=== PATIENT | female | born 1940 | race Caucasian/White ===

== ENCOUNTER 2018-07-15 06:51 | Day surgery (SDC) | payer MEDICARE, BC ==
[2018-07-15] MEDS ORDERED: Midazolam 1 MG/ML 2 ML SDV ONE (07:17)
[2018-07-15] MEDS ORDERED: fentaNYL 100 MCG/2 ML SDV ONE (07:17)
[2018-07-15] MEDS ORDERED: Lidocaine 0.5% 50 ML SDV ONE (07:17)
[2018-07-15] MEDS ORDERED: Propofol 200 MG/20 ML SDV ONE (07:17)
[2018-07-15] MEDS ORDERED: Lactated Ringers 1,000 ML IV SCH (07:30)
[2018-07-15] MEDS ORDERED: Nozin Nasal Sanitizer NASBOTH ONE (07:30)
[2018-07-15] MEDS ORDERED: Bupivacaine 0.5% 30 ML SDV ONE (07:43)
[2018-07-15] MEDS ORDERED: Clindamycin Phosphate 900 MG in Sodium Chloride 0.9% 100 ML IV ONE (08:30)
[2018-07-15] MEDS ORDERED: Acetaminophen/HYDROcodone 325-5 MG Tab PO ONE (10:40)
--- NOTE | 2018-07-15 13:36 | PCM.OPNOTE ---
- General Post-Op/Procedure Note Date of Surgery/Procedure: 07/15/18 Operative Procedure(s): Right carpal tunnel release and left carpal tunnel injection Findings: right median nerve with significant compression Pre Op Diagnosis: bilateral carpal tunnel syndrome Post-Op Diagnosis: Same Anesthesia Technique: Moderate Sedation, Regional Block Primary Surgeon: Bony GU in mLs: 0 Complications: None Condition: Good Free Text/Narrative:: Intake & Output 07/14/18 07/15/18 07/15/18 22:59 06:59 14:59 Intake Total 575 Balance 575 78 year old female with history of rapidly progressive numbness and weakness of both hands over the past few weeks. EMG and exam consistent with severe carpal tunnel syndrome bilaterally. She is right hand dominant. Plan right CTR today and injection of left carpal tunnel. Left CTR when right is healed sufficiently. Procedure: After adequate regional anesthesia was obtained with a [place] block on the right side right hand and wrist were prepped and draped in a sterile fashion. Longitudinal incision was made in line with the fourth finger distal to the wrist crease. This was taken down through the palmar fasciato the transverse carpal ligament.Ligament was divided under direct visualization. Release was completed proximally and distally contents of the carpal tunnel were inspected.No significant abnormties or space occupying lesions were noted The median nerve showed significant compression with hourglass deformity beneath the ligament. Wound was irrigated.Skin was then closed with 3-0 nylon in interrupted mattress fashion. Sterile dressing was applied.Patient tolerated the procedure very well. Left wrist was prepped with alcohol.Carpal tunnel was then injected with 1 mL each of 0.5% Marcaine and Celestone.She was taken from the operating room in a stable condition
== END 2018-07-15 11:35 | disposition home or self-care (01) ==
LOC: JP.SDS 06:51
PROVIDERS: ATTEND Specialist
DX: G56.03 Carpal tunnel syndrome, bilateral upper limbs (principal); I10 Essential (primary) hypertension; E11.9 Type 2 diabetes mellitus without complications; Z88.1 Allergy status to other antibiotic agents; Z88.8 Allergy status to other drugs, medicaments and biological substances
CPT/HCPCS: 20526; 64721; A9270; J2250; J2704; J3010; J3490; J7030; J7120

== ENCOUNTER 2023-08-27 11:15 | Emergency (ER) | payer MEDICARE, BC ==
[2023-08-27 12:32] LABS: BASOPHILS ABSOLUTE AUTO 0.03 K/uL (0.00-0.10); BASOPHILS PERCENT AUTO 0.5 % (0.1-1.3); EOSINOPHILS ABSOLUTE AUTO 0.05 K/uL (0.00-0.40); EOSINOPHILS PERCENT AUTO 0.9 % (0.0-5.4); HEMATOCRIT 34.8 % (34.3-46.0); HEMOGLOBIN 12.7 g/dL (11.2-15.5); IMMATURE GRAN PERCENT AUTO 0.4 % (0.0-0.7); LYMPHOCYTES ABSOLUTE AUTO 1.05 K/uL (0.8-3.3); MEAN CORPUSCULAR HEMOGLOBIN 30.4 pg (31.6-35.5); MEAN CORPUSCULAR HGB CONC 36.5 g/dL (31.6-35.5); MEAN CORPUSCULAR VOLUME 83.3 fL (81.4-99.0); MONOCYTES PERCENT AUTO 7.2 % (3.3-12.6); NEUTROPHILS ABSOLUTE AUTO 3.98 K/uL (1.0-7.6); PLATELET COUNT,PLT 237 K/uL (130-375); RED BLOOD CELL COUNT 4.18 M/uL (3.77-5.24); WHITE BLOOD CELL COUNT,WBC 5.5 K/uL (3.2-11.0)
[2023-08-27 12:34] LABS: BICARBONATE,VENOUS 20.3 mmol/L; CARBOXYHEMOGLOBIN 3.4 % (0.0-1.6); METHEMOGLOBIN 0.5 %; O2 SATURATION VENOUS 91.8; OXYHEMOGLOBIN 88.2 %; PCO2 VENOUS 28.6 mm/Hg; PH,VENOUS 7.464 (7.350-7.450); PO2 VENOUS 59.1 mm/Hg
[2023-08-27 12:40] LABS: IMMATURE GRAN ABSOLUTE AUTO 0.02 K/uL (0.00-0.23)
[2023-08-27 12:42] LABS: TOTAL HEMOGLOBIN 13.1 g/dL (12.0-16.0)
[2023-08-27 12:43] LABS: INR 1.2; PROTHROMBIN TIME 11.6 sec (9.2-10.6)
[2023-08-27 12:58] LABS: ALANINE AMINOTRANSFERASE,ALT 29 U/L (12-78); ALBUMIN 3.6 g/dL (3.4-5.0); ALKALINE PHOSPHATASE 72 U/L (46-116); ASPARTATE AMNIOTRANSFERASE,AST 21 U/L (15-37); BILIRUBIN TOTAL 1.1 mg/dL (0.2-1.0); BLOOD UREA NITROGEN,BUN 17 mg/dL (7-18); CARBON DIOXIDE,CO2 22 mmol/L (21-32); CHLORIDE,CL 97 mmol/L (100-108); CREATININE 1.3 mg/dL (0.6-1.0); EST CRCL DRUG DOSING (CG) 24.74 mL/min; ESTIMATED GFR 41 mL/min (>60); GLUCOSE RANDOM 177 mg/dL (74-106); POTASSIUM,K 3.4 mmol/L (3.6-5.2); PRO B-TYPE NATRIUR PEPT,BNPPRO 2379 pg/mL (5-450); PROTEIN TOTAL,TP 7.2 g/dL (6.4-8.2); SODIUM,NA 131 mmol/L (140-148); TROPONIN I HIGH SENSITIVITY 27.5 pg/mL (<=60.3); TSH ULTRASENSITIVE 4.695 uIU/mL (0.358-3.740)
[2023-08-27 13:02] LABS: ANION GAP 15.4 mmol/L (5.0-14.0)
[2023-08-27 13:41] LABS: CORONAVIRUS COVID-19 NAA NEGATIVE (NEGATIVE); INFLUENZA A NAA NEGATIVE (NEGATIVE); INFLUENZA B NAA NEGATIVE (NEGATIVE); RESPIRATORY SYNCYTIAL VIR NAA NEGATIVE (NEGATIVE)
[2023-08-27] MEDS: Metoprolol Tartrate 5 MG in Sodium Chloride 0.9% 50 ML IV ONE (13:43)
[2023-08-27] MEDS: Metoprolol Tartrate 5 MG/5 ML SDV IVPUSH ONE (13:51)
[2023-08-27] MEDS ORDERED: Sodium Chloride 0.9% 10 ML Syringe FLUSH ONE (13:53)
[2023-08-27] MEDS: Iopamidol 755 Mg/ML 100 ML Bottle IV ONE (14:12)
[2023-08-27] MEDS: Sodium Chloride 0.9% 100 ML IV ONE (14:12)
[2023-08-27 14:45] LABS: APPEARANCE,URINE CLEAR (CLEAR); BILIRUBIN,URINE NEGATIVE (NEGATIVE); COLOR,URINE YELLOW (YELLOW); GLUCOSE,URINE NEGATIVE (NEGATIVE); KETONES,URINE 40 mg/dL (NEGATIVE); LEUKOCYTE ESTERASE,URINE NEGATIVE (NEGATIVE); NITRITE,URINE NEGATIVE (NEGATIVE); OCCULT BLOOD,URINE SMALL (NEGATIVE); PROTEIN,URINE >=300 mg/dL (NEGATIVE); UROBILINOGEN,URINE 0.2 EU/dL (0.2-1.0)
[2023-08-27 14:53] LABS: AMORPHOUS SEDIMENT,URINE NOT SEEN; BACTERIA,URINE FEW; EPITHELIAL CELLS,URINE RARE; MUCUS,URINE NOT SEEN; WBC,URINE 0-5 (0-5)
[2023-08-27] MEDS: Metoprolol Succinate 25 MG Tab.ER PO ONE (16:29)
== END 2023-08-27 16:32 | disposition home or self-care (01) ==
LOC: JP.ED 11:15
DX: I48.91 Unspecified atrial fibrillation (principal); K80.20 Calculus of gallbladder without cholecystitis without obstruction; I11.0 Hypertensive heart disease with heart failure; I50.41 Acute combined systolic (congestive) and diastolic (congestive) heart failure; E11.9 Type 2 diabetes mellitus without complications; Z88.0 Allergy status to penicillin; Z88.8 Allergy status to other drugs, medicaments and biological substances; Z79.82 Long term (current) use of aspirin; Z79.84 Long term (current) use of oral hypoglycemic drugs; Z79.4 Long term (current) use of insulin; Z79.899 Other long term (current) drug therapy; Z90.49 Acquired absence of other specified parts of digestive tract
CPT/HCPCS: 0241U; 36415; 71045; 71275; 74177; 80053; 81001; 82803; 83605; 83880; 84145; 84443; 84484; 85025; 85379; 85610; 93005; 93010; 96374; 99285; A9270; J3490; Q9967

== ENCOUNTER 2023-09-01 11:40 | Emergency (ER) | payer MEDICARE, BC | END 2023-09-01 14:44 | disposition home or self-care (01) | LOC: JP.ED 11:40 | DX: R60.0 Localized edema (principal); I10 Essential (primary) hypertension; I48.91 Unspecified atrial fibrillation; E11.9 Type 2 diabetes mellitus without complications; Z88.0 Allergy status to penicillin; Z88.8 Allergy status to other drugs, medicaments and biological substances; Z79.82 Long term (current) use of aspirin; Z79.899 Other long term (current) drug therapy; Z79.84 Long term (current) use of oral hypoglycemic drugs; Z79.4 Long term (current) use of insulin; Z79.01 Long term (current) use of anticoagulants | CPT/HCPCS: 99284 ==

== ENCOUNTER 2023-09-10 13:28 | Emergency (ER) | payer MEDICARE, BC | END 2023-09-10 15:10 | disposition home or self-care (01) | LOC: JP.ED 13:28 | DX: S90.02XA Contusion of left ankle, initial encounter (principal); S80.12XA Contusion of left lower leg, initial encounter; S90.32XA Contusion of left foot, initial encounter; I10 Essential (primary) hypertension; I48.91 Unspecified atrial fibrillation; E11.9 Type 2 diabetes mellitus without complications; Z88.0 Allergy status to penicillin; Z91.048 Other nonmedicinal substance allergy status; Z88.8 Allergy status to other drugs, medicaments and biological substances; Z88.2 Allergy status to sulfonamides; Z79.82 Long term (current) use of aspirin; Z79.4 Long term (current) use of insulin; Z79.899 Other long term (current) drug therapy; Z79.84 Long term (current) use of oral hypoglycemic drugs; W26.8XXA Contact with other sharp object(s), not elsewhere classified, initial encounter | CPT/HCPCS: 99283 ==

== ENCOUNTER 2023-10-20 14:00 | Emergency (ER) | payer MEDICARE, BC ==
[2023-10-20 15:43] LABS: BASOPHILS PERCENT AUTO 0.2 % (0.1-1.3); EOSINOPHILS ABSOLUTE AUTO 0.06 K/uL (0.00-0.40); EOSINOPHILS PERCENT AUTO 1.1 % (0.0-5.4); HEMATOCRIT 29.8 % (34.3-46.0); HEMOGLOBIN 10.6 g/dL (11.2-15.5); IMMATURE GRAN PERCENT AUTO 0.4 % (0.0-0.7); LYMPHOCYTES ABSOLUTE AUTO 0.91 K/uL (0.8-3.3); LYMPHOCYTES PERCENT AUTO 16.9 % (11.4-47.7); MEAN CORPUSCULAR HEMOGLOBIN 29.8 pg (31.6-35.5); MEAN CORPUSCULAR HGB CONC 35.6 g/dL (31.6-35.5); MEAN CORPUSCULAR VOLUME 83.7 fL (81.4-99.0); MONOCYTES ABSOLUTE AUTO 0.43 K/uL (0.20-0.90); NEUTROPHILS ABSOLUTE AUTO 3.95 K/uL (1.0-7.6); NEUTROPHILS PERCENT AUTO 73.4 % (40.0-78.1); PLATELET COUNT,PLT 194 K/uL (130-375); RED BLOOD CELL COUNT 3.56 M/uL (3.77-5.24); WHITE BLOOD CELL COUNT,WBC 5.4 K/uL (3.2-11.0)
[2023-10-20 15:47] LABS: BASOPHILS ABSOLUTE AUTO 0.01 K/uL (0.00-0.10); IMMATURE GRAN ABSOLUTE AUTO 0.02 K/uL (0.00-0.23)
[2023-10-20 16:02] LABS: INR 1.5; PROTHROMBIN TIME 15.5 sec (9.2-10.6); PTT,PARTIAL THROMBOPLSTIN TIME 38.5 sec (21.8-27.3)
[2023-10-20 16:12] LABS: ALANINE AMINOTRANSFERASE,ALT 23 U/L (12-78); ALKALINE PHOSPHATASE 63 U/L (46-116); ASPARTATE AMNIOTRANSFERASE,AST 20 U/L (15-37); BILIRUBIN TOTAL 0.7 mg/dL (0.2-1.0); BLOOD UREA NITROGEN,BUN 17 mg/dL (7-18); CALCIUM 8.3 mg/dL (8.5-10.1); CARBON DIOXIDE,CO2 23 mmol/L (21-32); CHLORIDE,CL 94 mmol/L (100-108); CREATININE 1.7 mg/dL (0.6-1.0); EST CRCL DRUG DOSING (CG) 19.83 mL/min; ESTIMATED GFR 30 mL/min (>60); GLUCOSE RANDOM 103 mg/dL (74-106); PHOSPHORUS 4.1 mg/dL (2.5-4.9); POTASSIUM,K 3.5 mmol/L (3.6-5.2); PRO B-TYPE NATRIUR PEPT,BNPPRO 7972 pg/mL (5-450); PROTEIN TOTAL,TP 6.1 g/dL (6.4-8.2); SODIUM,NA 130 mmol/L (140-148); TROPONIN I HIGH SENSITIVITY 17.2 pg/mL (<=60.3)
[2023-10-20 16:13] LABS: ANION GAP 16.5 mmol/L (5.0-14.0); C-REACTIVE PROTEIN < 0.50 mg/dL (<0.50)
[2023-10-20] MEDS: Furosemide 40 MG/4 ML VIAL IVPUSH ONE (17:10)
[2023-10-20 17:13] LABS: APPEARANCE,URINE CLEAR (CLEAR); BILIRUBIN,URINE NEGATIVE (NEGATIVE); COLOR,URINE YELLOW (YELLOW); GLUCOSE,URINE NEGATIVE (NEGATIVE); KETONES,URINE NEGATIVE (NEGATIVE); LEUKOCYTE ESTERASE,URINE NEGATIVE (NEGATIVE); NITRITE,URINE NEGATIVE (NEGATIVE); OCCULT BLOOD,URINE NEGATIVE (NEGATIVE); PH,URINE 5.5 (5.0-8.0); PROTEIN,URINE 100 mg/dL (NEGATIVE); UROBILINOGEN,URINE 0.2 EU/dL (0.2-1.0)
[2023-10-20] MEDS: Magnesium Sulfate/Water 2 GM in Premix Bag 1 BAG IV ONE ×2 (17:14→19:09)
[2023-10-20 17:30] LABS: AMORPHOUS SEDIMENT,URINE NOT SEEN; BACTERIA,URINE RARE; EPITHELIAL CELLS,URINE MANY; MUCUS,URINE FEW; RBC,URINE 0-5 (0-5)
== END 2023-10-20 21:47 | disposition home or self-care (01) ==
LOC: JP.ED 14:00
DX: I11.0 Hypertensive heart disease with heart failure (principal); I50.23 Acute on chronic systolic (congestive) heart failure; E83.42 Hypomagnesemia; E78.00 Pure hypercholesterolemia, unspecified; E11.9 Type 2 diabetes mellitus without complications; Z90.49 Acquired absence of other specified parts of digestive tract; Z79.84 Long term (current) use of oral hypoglycemic drugs; Z79.899 Other long term (current) drug therapy; Z79.4 Long term (current) use of insulin; Z88.8 Allergy status to other drugs, medicaments and biological substances; Z88.2 Allergy status to sulfonamides; Z88.0 Allergy status to penicillin
CPT/HCPCS: 36415; 71046; 80053; 81001; 83605; 83735; 83880; 84100; 84484; 85025; 85610; 85730; 86140; 93005; 93010; 96365; 96366; 96375; 99284; 99285; J1940; J3475

== ENCOUNTER 2023-11-10 11:53 | Inpatient (IN) | payer MEDICARE, BC ==
[2023-11-10] MEDS ORDERED: Sodium Chloride 0.9% 10 ML Syringe FLUSH PRN (14:38)
[2023-11-10 14:51] LABS: BASOPHILS ABSOLUTE AUTO 0.04 K/uL (0.00-0.10); BASOPHILS PERCENT AUTO 0.7 % (0.1-1.3); EOSINOPHILS ABSOLUTE AUTO 0.06 K/uL (0.00-0.40); EOSINOPHILS PERCENT AUTO 1.1 % (0.0-5.4); HEMATOCRIT 31.9 % (34.3-46.0); HEMOGLOBIN 10.8 g/dL (11.2-15.5); IMMATURE GRAN ABSOLUTE AUTO 0.03 K/uL (0.00-0.23); IMMATURE GRAN PERCENT AUTO 0.5 % (0.0-0.7); LYMPHOCYTES ABSOLUTE AUTO 1.13 K/uL (0.8-3.3); LYMPHOCYTES PERCENT AUTO 20.5 % (11.4-47.7); MEAN CORPUSCULAR HEMOGLOBIN 29.6 pg (31.6-35.5); MEAN CORPUSCULAR HGB CONC 33.9 g/dL (31.6-35.5); MEAN CORPUSCULAR VOLUME 87.4 fL (81.4-99.0); MONOCYTES ABSOLUTE AUTO 0.41 K/uL (0.20-0.90); MONOCYTES PERCENT AUTO 7.5 % (3.3-12.6); NEUTROPHILS ABSOLUTE AUTO 3.83 K/uL (1.0-7.6); NEUTROPHILS PERCENT AUTO 69.7 % (40.0-78.1); PLATELET COUNT,PLT 262 K/uL (130-375); RED BLOOD CELL COUNT 3.65 M/uL (3.77-5.24); WHITE BLOOD CELL COUNT,WBC 5.5 K/uL (3.2-11.0)
[2023-11-10 15:21] LABS: ALANINE AMINOTRANSFERASE,ALT 25 U/L (12-78); ALBUMIN 3.6 g/dL (3.4-5.0); ALKALINE PHOSPHATASE 76 U/L (46-116); ASPARTATE AMNIOTRANSFERASE,AST 17 U/L (15-37); BILIRUBIN TOTAL 1.1 mg/dL (0.2-1.0); BLOOD UREA NITROGEN,BUN 39 mg/dL (7-18); CALCIUM 8.8 mg/dL (8.5-10.1); CARBON DIOXIDE,CO2 28 mmol/L (21-32); CHLORIDE,CL 100 mmol/L (100-108); CREATININE 1.9 mg/dL (0.6-1.0); EST CRCL DRUG DOSING (CG) 17.74 mL/min; ESTIMATED GFR 26 mL/min (>60); GLUCOSE RANDOM 115 mg/dL (74-106); POTASSIUM,K 4.1 mmol/L (3.6-5.2); PRO B-TYPE NATRIUR PEPT,BNPPRO 9193 pg/mL (5-450); PROTEIN TOTAL,TP 7.2 g/dL (6.4-8.2); SODIUM,NA 137 mmol/L (140-148)
[2023-11-10 15:23] LABS: ANION GAP 13.1 mmol/L (5.0-14.0)
[2023-11-10] MEDS: Furosemide 40 MG/4 ML VIAL IVPUSH ONE (16:22)
[2023-11-10] MEDS ORDERED: Propofol 200 MG/20 ML SDV ONE (17:20)
[2023-11-10] MEDS: Diltiazem 25 MG/5 ML SDV IVPUSH ONE (17:27)
[2023-11-10] MEDS: LORazepam 2 MG/ML SDV IVPUSH ONE (18:05)
[2023-11-10] MEDS ORDERED: Ondansetron 4 MG Tab.DIS PO PRN (19:59)
[2023-11-10] MEDS ORDERED: Acetaminophen 325 MG Tab PO PRN (19:59)
[2023-11-10] MEDS ORDERED: Melatonin 3 MG Tab PO PRN (19:59)
[2023-11-10] MEDS ORDERED: Magnesium Hydroxide 400 MG/5 ML Susp 30 ML Cup PO PRN (19:59)
[2023-11-10] MEDS ORDERED: Sennosides/Docusate Sodium 50-8.6 MG Tab PO PRN (19:59)
[2023-11-10] MEDS ORDERED: Ondansetron 4 MG/2 ML SDV IV PRN (19:59)
[2023-11-10] MEDS ORDERED: Glucagon,Human Recombinant 1 MG Vial IM PRN (20:27)
[2023-11-10] MEDS ORDERED: 50% Dextrose in Water 50 ML Syringe IVPUSH PRN (20:27)
[2023-11-10] MEDS: Insulin Lispro 100 Unit/ML 3 ML KwikPen SUBCUT SCH (21:17)
[2023-11-10] MEDS: Metoprolol Succinate 50 MG Tab.ER PO SCH (21:21)
[2023-11-10] MEDS: Bumetanide 2.5 MG/10 ML MDV IVPUSH SCH (21:22)
[2023-11-10] MEDS: Insulin Glargine,Human Rec. Analog 100 Units/ML 3 ML Pen SUBCUT SCH (21:23)
[2023-11-10] MEDS: Magnesium Sulfate/Water 2 GM in Premix Bag 1 BAG IV ONE (22:22)
[2023-11-11 05:16] LABS: HEMATOCRIT 32.9 % (34.3-46.0); HEMOGLOBIN 11.2 g/dL (11.2-15.5); MEAN CORPUSCULAR HEMOGLOBIN 29.5 pg (31.6-35.5); MEAN CORPUSCULAR VOLUME 86.6 fL (81.4-99.0); RED BLOOD CELL COUNT 3.8 M/uL (3.77-5.24); WHITE BLOOD CELL COUNT,WBC 5.3 K/uL (3.2-11.0)
[2023-11-11 05:33] LABS: CALCIUM 8.7 mg/dL (8.5-10.1); CREATININE 1.8 mg/dL (0.6-1.0); EST CRCL DRUG DOSING (CG) 18.73 mL/min; MAGNESIUM 2.1 mg/dL (1.8-2.4); POTASSIUM,K 3.6 mmol/L (3.6-5.2)
[2023-11-11 05:54] LABS: ANION GAP 17.6 mmol/L (5.0-14.0)
[2023-11-11] MEDS: Metoprolol Tartrate 5 MG/5 ML SDV IVPUSH ONE (08:18)
[2023-11-11] MEDS: amLODIPine 5 MG Tab PO SCH (08:34)
[2023-11-11] MEDS: Bumetanide 1 MG/4 ML MDV IVPUSH SCH (08:34)
[2023-11-11] MEDS: Rosuvastatin 10 MG Tab PO SCH (08:35)
[2023-11-11] MEDS ORDERED: Bumetanide 2.5 MG/10 ML MDV IVPUSH SCH (09:00)
[2023-11-11] MEDS ORDERED: Rivaroxaban 15 MG Tab PO SCH (17:00)
== END 2023-11-11 12:53 | DRG 291 ==
LOC: JP.ED 11:53 → JP.MS 19:25
PROVIDERS: ADMIT Registered Nurse; ATTEND Hospitalist
PROC: 5A2204Z Restoration of Cardiac Rhythm, Single (ICD-10-PCS; principal; 2023-11-10)
DX: I11.0 Hypertensive heart disease with heart failure (principal); I50.33 Acute on chronic diastolic (congestive) heart failure; I48.11 Longstanding persistent atrial fibrillation; I48.92 Unspecified atrial flutter; E78.00 Pure hypercholesterolemia, unspecified; E11.9 Type 2 diabetes mellitus without complications; E83.42 Hypomagnesemia; Z79.01 Long term (current) use of anticoagulants; Z88.0 Allergy status to penicillin; Z88.2 Allergy status to sulfonamides; Z88.1 Allergy status to other antibiotic agents; Z88.8 Allergy status to other drugs, medicaments and biological substances; Z79.4 Long term (current) use of insulin; Z79.84 Long term (current) use of oral hypoglycemic drugs; Z79.899 Other long term (current) drug therapy; Z98.890 Other specified postprocedural states; Z98.49 Cataract extraction status, unspecified eye; Z90.49 Acquired absence of other specified parts of digestive tract
CPT/HCPCS: 36415; 71045 ×2; 80053; 83735; 83880; 84443; 84484; 85025; 92960; 93005; 96374; 96375; 99285; J1940; J2704; J3490; 80048; 82947; 85027; A9270-GY; J1815; J1815-GY; J3475

== ENCOUNTER 2023-12-19 11:11 | Inpatient (IN) | payer MEDICARE, BC ==
[2023-12-19] MEDS ORDERED: Polyethylene Glycol 3350 Powder 17 GM Packet PO PRN (11:57)
[2023-12-19] MEDS ORDERED: Sodium Chloride 0.9% 10 ML Syringe FLUSH PRN (11:57)
[2023-12-19] MEDS ORDERED: Ondansetron 4 MG/2 ML SDV IV PRN (11:57)
[2023-12-19] MEDS ORDERED: Acetaminophen 325 MG Tab PO PRN (11:57)
[2023-12-19] MEDS ORDERED: Glucagon,Human Recombinant 1 MG Vial IM PRN (12:02)
[2023-12-19] MEDS ORDERED: 50% Dextrose in Water 50 ML Syringe IV PRN (12:04)
[2023-12-19] MEDS ORDERED: Glucose Gel 15 GM in 37.5 GM Tube PO PRN (12:04)
[2023-12-19 12:15] LABS: BASOPHILS ABSOLUTE AUTO 0.05 K/uL (0.00-0.10); BASOPHILS PERCENT AUTO 0.8 % (0.1-1.3); EOSINOPHILS PERCENT AUTO 1.7 % (0.0-5.4); HEMATOCRIT 34.8 % (34.3-46.0); HEMOGLOBIN 11.8 g/dL (11.2-15.5); IMMATURE GRAN PERCENT AUTO 0.3 % (0.0-0.7); LYMPHOCYTES ABSOLUTE AUTO 1.51 K/uL (0.8-3.3); LYMPHOCYTES PERCENT AUTO 24.9 % (11.4-47.7); MEAN CORPUSCULAR HEMOGLOBIN 29.6 pg (31.6-35.5); MEAN CORPUSCULAR HGB CONC 33.9 g/dL (31.6-35.5); MEAN CORPUSCULAR VOLUME 87.2 fL (81.4-99.0); MONOCYTES PERCENT AUTO 8.3 % (3.3-12.6); NEUTROPHILS ABSOLUTE AUTO 3.88 K/uL (1.0-7.6); PLATELET COUNT,PLT 253 K/uL (130-375); RED BLOOD CELL COUNT 3.99 M/uL (3.77-5.24); WHITE BLOOD CELL COUNT,WBC 6.1 K/uL (3.2-11.0)
[2023-12-19 12:21] LABS: IMMATURE GRAN ABSOLUTE AUTO 0.02 K/uL (0.00-0.23)
[2023-12-19 12:56] LABS: ALANINE AMINOTRANSFERASE,ALT 23 U/L (12-78); ALBUMIN 3.7 g/dL (3.4-5.0); ALKALINE PHOSPHATASE 87 U/L (46-116); ASPARTATE AMNIOTRANSFERASE,AST 21 U/L (15-37); BILIRUBIN TOTAL 0.7 mg/dL (0.2-1.0); BLOOD UREA NITROGEN,BUN 28 mg/dL (7-18); CALCIUM 9.4 mg/dL (8.5-10.1); CARBON DIOXIDE,CO2 35 mmol/L (21-32); CHLORIDE,CL 96 mmol/L (100-108); CREATININE 2.1 mg/dL (0.6-1.0); EST CRCL DRUG DOSING (CG) 16.05 mL/min; ESTIMATED GFR 23 mL/min (>60); GLUCOSE RANDOM 140 mg/dL (74-106); MAGNESIUM 1.7 mg/dL (1.8-2.4); POTASSIUM,K 3.6 mmol/L (3.6-5.2); PROTEIN TOTAL,TP 7.3 g/dL (6.4-8.2); SODIUM,NA 136 mmol/L (140-148)
[2023-12-19 13:06] LABS: ANION GAP 8.6 mmol/L (5.0-14.0)
[2023-12-19] MEDS: Potassium Chloride 20 MEQ Tab.ER PO ONE (14:16)
[2023-12-19] MEDS: Magnesium Sulfate/Water 2 GM in Premix Bag 1 BAG IV SCH (14:17)
[2023-12-19] MEDS: Insulin Lispro 100 Unit/ML 3 ML KwikPen SUBCUT SCH (17:41)
[2023-12-19] MEDS: Bumetanide 1 MG/4 ML MDV IVPUSH ONE (19:18)
[2023-12-19] MEDS: Insulin Glargine,Human Rec. Analog 100 Units/ML 3 ML Pen SUBCUT SCH (20:51)
[2023-12-19] MEDS: Metoprolol Succinate 25 MG Tab.ER PO SCH (20:52)
[2023-12-19] MEDS: Magnesium Oxide 400 MG Tab PO SCH (20:52)
[2023-12-20 06:25] LABS: CALCIUM 9.8 mg/dL (8.5-10.1); CREATININE 1.9 mg/dL (0.6-1.0); EST CRCL DRUG DOSING (CG) 17.74 mL/min; MAGNESIUM 1.9 mg/dL (1.8-2.4); POTASSIUM,K 3.1 mmol/L (3.6-5.2)
[2023-12-20 06:30] LABS: ANION GAP 8.1 mmol/L (5.0-14.0)
[2023-12-20] MEDS: Rivaroxaban 15 MG Tab PO SCH (08:23)
[2023-12-20] MEDS: Diltiazem 120 MG Cap.CD PO SCH (08:23)
[2023-12-20] MEDS: Rosuvastatin 10 MG Tab PO SCH (08:23)
[2023-12-20] MEDS: Potassium Chloride 20 MEQ Tab.ER PO SCH (08:24)
[2023-12-20] MEDS ORDERED: Bumetanide 1 MG/4 ML MDV IVPUSH ONE (08:45)
[2023-12-20] MEDS ORDERED: Magnesium Oxide 400 MG Tab PO SCH (09:00)
[2023-12-20] MEDS: Potassium Chloride 20 MEQ Tab.ER PO ONE ×2 (09:06→12:00)
[2023-12-20] MEDS: Bumetanide 2.5 MG/10 ML MDV IVPUSH ONE (09:06)
[2023-12-20] MEDS: Bumetanide 2.5 MG/10 ML MDV IVPUSH SCH (19:42)
[2023-12-21 05:22] LABS: CALCIUM 9.9 mg/dL (8.5-10.1); EST CRCL DRUG DOSING (CG) 16.86 mL/min; MAGNESIUM 1.9 mg/dL (1.8-2.4); POTASSIUM,K 3.6 mmol/L (3.6-5.2)
[2023-12-21 05:26] LABS: ANION GAP 10.6 mmol/L (5.0-14.0)
[2023-12-21] MEDS: Potassium Chloride 20 MEQ Tab.ER PO ONE ×2 (09:06→16:53)
[2023-12-21] MEDS: Potassium Chloride 20 MEQ Tab.ER PO SCH (09:06)
[2023-12-22 06:25] LABS: CREATININE 2.2 mg/dL (0.6-1.0); EST CRCL DRUG DOSING (CG) 15.32 mL/min; POTASSIUM,K 3.5 mmol/L (3.6-5.2)
[2023-12-22 06:28] LABS: ANION GAP 7.5 mmol/L (5.0-14.0)
[2023-12-22] MEDS: Potassium Chloride 20 MEQ Tab.ER PO ONE (11:46)
[2023-12-22] MEDS: Bumetanide 1 MG/4 ML MDV IVPUSH SCH (15:18)
[2023-12-23 05:37] LABS: CALCIUM 9.7 mg/dL (8.5-10.1); CREATININE 2.1 mg/dL (0.6-1.0); EST CRCL DRUG DOSING (CG) 16.05 mL/min; POTASSIUM,K 3.5 mmol/L (3.6-5.2)
[2023-12-23 05:44] LABS: ANION GAP 6.5 mmol/L (5.0-14.0)
[2023-12-23] MEDS: Bumetanide 2.5 MG/10 ML MDV IVPUSH SCH (06:10)
[2023-12-23] MEDS: Potassium Chloride 20 MEQ Tab.ER PO ONE (08:13)
[2023-12-23] MEDS: Bumetanide 1 MG Tab PO ONE (16:34)
[2023-12-24 06:10] LABS: CALCIUM 9.8 mg/dL (8.5-10.1); EST CRCL DRUG DOSING (CG) 16.86 mL/min; POTASSIUM,K 3.6 mmol/L (3.6-5.2)
[2023-12-24 06:11] LABS: ANION GAP 7.6 mmol/L (5.0-14.0)
[2023-12-24] MEDS: Bumetanide 1 MG Tab PO SCH (08:59)
== END 2023-12-24 11:17 | disposition home or self-care (01) | DRG 291 ==
LOC: JP.MS 11:11
PROVIDERS: ADMIT Hospitalist; ATTEND Internal Medicine
DX: I13.0 Hypertensive heart and chronic kidney disease with heart failure and stage 1 through stage 4 chronic kidney disease, or unspecified chronic kidney disease (principal); I50.33 Acute on chronic diastolic (congestive) heart failure; N18.4 Chronic kidney disease, stage 4 (severe); E78.00 Pure hypercholesterolemia, unspecified; I08.1 Rheumatic disorders of both mitral and tricuspid valves; I48.0 Paroxysmal atrial fibrillation; E87.6 Hypokalemia; Z86.16 Personal history of COVID-19; Z88.0 Allergy status to penicillin; Z88.8 Allergy status to other drugs, medicaments and biological substances; Z88.1 Allergy status to other antibiotic agents; Z88.2 Allergy status to sulfonamides; Z79.4 Long term (current) use of insulin; Z79.899 Other long term (current) drug therapy; Z79.01 Long term (current) use of anticoagulants; Z98.49 Cataract extraction status, unspecified eye; Z90.49 Acquired absence of other specified parts of digestive tract; Z98.890 Other specified postprocedural states
CPT/HCPCS: 36415; 80048; 80053; 82947; 83735; 83880; 84132; 85025; 99222; 99232; 99238; A9270-GY; J1815; J1815-GY; J3475; J3490

== ENCOUNTER 2024-03-26 17:15 | Inpatient (IN) | payer MEDICARE, BC ==
[2024-03-26 19:22] LABS: BASOPHILS ABSOLUTE AUTO 0.04 K/uL (0.00-0.10); BASOPHILS PERCENT AUTO 0.6 % (0.1-1.3); EOSINOPHILS ABSOLUTE AUTO 0.04 K/uL (0.00-0.40); EOSINOPHILS PERCENT AUTO 0.6 % (0.0-5.4); HEMOGLOBIN 9.9 g/dL (11.2-15.5); IMMATURE GRAN ABSOLUTE AUTO 0.02 K/uL (0.00-0.23); IMMATURE GRAN PERCENT AUTO 0.3 % (0.0-0.7); LYMPHOCYTES ABSOLUTE AUTO 0.58 K/uL (0.8-3.3); LYMPHOCYTES PERCENT AUTO 8.8 % (11.4-47.7); MEAN CORPUSCULAR HGB CONC 31.9 g/dL (31.6-35.5); MEAN CORPUSCULAR VOLUME 87.8 fL (81.4-99.0); MONOCYTES ABSOLUTE AUTO 0.31 K/uL (0.20-0.90); MONOCYTES PERCENT AUTO 4.7 % (3.3-12.6); NEUTROPHILS ABSOLUTE AUTO 5.63 K/uL (1.0-7.6); PLATELET COUNT,PLT 273 K/uL (130-375); RED BLOOD CELL COUNT 3.53 M/uL (3.77-5.24); WHITE BLOOD CELL COUNT,WBC 6.6 K/uL (3.2-11.0)
[2024-03-26 19:42] LABS: A/G RATIO 0.8 (1.2-2.2); ALANINE AMINOTRANSFERASE,ALT 17 U/L (12-78); ALBUMIN 3.4 g/dL (3.4-5.0); ALKALINE PHOSPHATASE 98 U/L (46-116); ASPARTATE AMNIOTRANSFERASE,AST 17 U/L (15-37); BILIRUBIN TOTAL 0.6 mg/dL (0.2-1.0); BLOOD UREA NITROGEN,BUN 49 mg/dL (7-18); CALCIUM 9.4 mg/dL (8.5-10.1); CARBON DIOXIDE,CO2 27 mmol/L (21-32); CHLORIDE,CL 105 mmol/L (100-108); EST CRCL DRUG DOSING (CG) 9.11 mL/min; ESTIMATED GFR 12 mL/min (>60); GLUCOSE RANDOM 172 mg/dL (74-106); POTASSIUM,K 5.4 mmol/L (3.6-5.2); PROTEIN TOTAL,TP 7.5 g/dL (6.4-8.2); SODIUM,NA 140 mmol/L (140-148)
[2024-03-26 19:43] LABS: ANION GAP 13.4 mmol/L (5.0-14.0)
[2024-03-26 19:44] LABS: CREATININE 3.7 mg/dL (0.6-1.0)
[2024-03-26 21:12] LABS: CORONAVIRUS COVID-19 NAA NEGATIVE (NEGATIVE); INFLUENZA A NAA NEGATIVE (NEGATIVE); INFLUENZA B NAA NEGATIVE (NEGATIVE); RESPIRATORY SYNCYTIAL VIR NAA NEGATIVE (NEGATIVE)
[2024-03-26] MEDS ORDERED: Sodium Chloride 0.9% 10 ML Syringe FLUSH PRN (22:46)
[2024-03-26] MEDS ORDERED: Albuterol 0.083% 2.5 MG/3 ML Neb Soln NEB PRN (22:46)
[2024-03-26] MEDS ORDERED: 50% Dextrose in Water 50 ML Syringe IV PRN (22:46)
[2024-03-26] MEDS ORDERED: Acetaminophen 325 MG Tab PO PRN (22:46)
[2024-03-26] MEDS ORDERED: Glucagon,Human Recombinant 1 MG Vial IM PRN (22:46)
[2024-03-26] MEDS ORDERED: Glucose Gel 15 GM in 37.5 GM Tube PO PRN (22:46)
[2024-03-26] MEDS ORDERED: Polyethylene Glycol 3350 Powder 17 GM Packet PO PRN (22:46)
[2024-03-26] MEDS ORDERED: Ondansetron 4 MG/2 ML SDV IV PRN (22:46)
[2024-03-26] MEDS: Bumetanide 1 MG/4 ML MDV IVPUSH ONE (23:30)
[2024-03-26] MEDS: Apixaban 2.5 MG Tab PO SCH (23:47)
[2024-03-26] MEDS: Insulin Glargine,Human Rec. Analog 100 Units/ML 3 ML Pen SUBCUT SCH (23:49)
[2024-03-27 05:50] LABS: HEMATOCRIT 29.1 % (34.3-46.0); HEMOGLOBIN 9.5 g/dL (11.2-15.5); MEAN CORPUSCULAR HEMOGLOBIN 28.7 pg (31.6-35.5); MEAN CORPUSCULAR HGB CONC 32.6 g/dL (31.6-35.5); MEAN CORPUSCULAR VOLUME 87.9 fL (81.4-99.0); RED BLOOD CELL COUNT 3.31 M/uL (3.77-5.24); WHITE BLOOD CELL COUNT,WBC 4.6 K/uL (3.2-11.0)
[2024-03-27 06:09] LABS: ANION GAP 10.3 mmol/L (5.0-14.0); CALCIUM 9.4 mg/dL (8.5-10.1); EST CRCL DRUG DOSING (CG) 9.55 mL/min; MAGNESIUM 2.2 mg/dL (1.8-2.4); POTASSIUM,K 4.2 mmol/L (3.6-5.2)
[2024-03-27 06:15] LABS: CREATININE 3.5 mg/dL (0.6-1.0)
[2024-03-27] MEDS: Insulin Lispro 100 Unit/ML 3 ML KwikPen SUBCUT SCH (07:43)
[2024-03-27] MEDS: Sennosides 8.6 MG Tab PO SCH (08:25)
[2024-03-27] MEDS: Amiodarone 200 MG Tab PO SCH (08:25)
[2024-03-27] MEDS: Diltiazem 180 MG Cap.CD PO SCH (08:26)
[2024-03-27] MEDS: Magnesium Oxide 400 MG Tab PO SCH (08:26)
[2024-03-27] MEDS: Rosuvastatin 10 MG Tab PO SCH (08:26)
[2024-03-27] MEDS ORDERED: Apixaban 2.5 MG Tab PO SCH (09:00)
[2024-03-27] MEDS: Bumetanide 2.5 MG/10 ML MDV IVPUSH SCH (09:11)
[2024-03-27] MEDS: FLU (Fluad Triv) TS24-25 (65UP)/MF59C/PF 45 MCG/0.5 ML Syringe IM ONE (09:57)
[2024-03-27] MEDS ORDERED: Insulin Glargine,Human Rec. Analog 100 Units/ML 3 ML Pen SUBCUT SCH (21:00)
[2024-03-28 05:42] LABS: HEMATOCRIT 26.8 % (34.3-46.0); HEMOGLOBIN 8.7 g/dL (11.2-15.5); MEAN CORPUSCULAR HEMOGLOBIN 28.5 pg (31.6-35.5); MEAN CORPUSCULAR HGB CONC 32.5 g/dL (31.6-35.5); MEAN CORPUSCULAR VOLUME 87.9 fL (81.4-99.0); RED BLOOD CELL COUNT 3.05 M/uL (3.77-5.24); WHITE BLOOD CELL COUNT,WBC 5.9 K/uL (3.2-11.0)
[2024-03-28 05:55] LABS: ANION GAP 10.6 mmol/L (5.0-14.0); CALCIUM 9.2 mg/dL (8.5-10.1); CREATININE 3.4 mg/dL (0.6-1.0); EST CRCL DRUG DOSING (CG) 9.83 mL/min; POTASSIUM,K 3.8 mmol/L (3.6-5.2)
[2024-03-28] MEDS: Potassium Chloride 20 MEQ Tab.ER PO ONE ×2 (08:43→17:29)
[2024-03-29 06:20] LABS: ANION GAP 7.7 mmol/L (5.0-14.0); CALCIUM 9.3 mg/dL (8.5-10.1); CREATININE 3.4 mg/dL (0.6-1.0); EST CRCL DRUG DOSING (CG) 9.83 mL/min
[2024-03-29] MEDS: Bumetanide 1 MG Tab PO SCH (14:08)
[2024-03-30 06:16] LABS: CALCIUM 9.2 mg/dL (8.5-10.1); CREATININE 3.1 mg/dL (0.6-1.0); EST CRCL DRUG DOSING (CG) 10.78 mL/min; POTASSIUM,K 3.5 mmol/L (3.6-5.2)
[2024-03-30 06:17] LABS: ANION GAP 9.5 mmol/L (5.0-14.0)
[2024-03-30] MEDS: Potassium Chloride 20 MEQ Tab.ER PO ONE (08:32)
== END 2024-03-30 15:42 | disposition home or self-care (01) | DRG 291 ==
LOC: JP.ED 17:15 → JP.ICU 21:57 → JP.MS 03-27 15:33
PROVIDERS: ADMIT Hospitalist; ATTEND Internal Medicine
PROC: 0W993ZZ Drainage of Right Pleural Cavity, Percutaneous Approach (ICD-10-PCS; principal; 2024-03-27)
DX: J90 Pleural effusion, not elsewhere classified (principal); I13.0 Hypertensive heart and chronic kidney disease with heart failure and stage 1 through stage 4 chronic kidney disease, or unspecified chronic kidney disease; I50.33 Acute on chronic diastolic (congestive) heart failure; J96.01 Acute respiratory failure with hypoxia; J91.8 Pleural effusion in other conditions classified elsewhere; I50.9 Heart failure, unspecified; N18.4 Chronic kidney disease, stage 4 (severe); I48.11 Longstanding persistent atrial fibrillation; N17.9 Acute kidney failure, unspecified; H26.9 Unspecified cataract; F15.90 Other stimulant use, unspecified, uncomplicated; E11.22 Type 2 diabetes mellitus with diabetic chronic kidney disease; I48.0 Paroxysmal atrial fibrillation; E87.6 Hypokalemia; N18.9 Chronic kidney disease, unspecified; E78.00 Pure hypercholesterolemia, unspecified; Z79.899 Other long term (current) drug therapy; Z79.01 Long term (current) use of anticoagulants; Z79.2 Long term (current) use of antibiotics; Z88.1 Allergy status to other antibiotic agents; Z98.49 Cataract extraction status, unspecified eye; Z98.890 Other specified postprocedural states; Z82.49 Family history of ischemic heart disease and other diseases of the circulatory system; Z79.4 Long term (current) use of insulin; Z79.02 Long term (current) use of antithrombotics/antiplatelets; Z79.1 Long term (current) use of non-steroidal anti-inflammatories (NSAID); Z88.0 Allergy status to penicillin; Z88.8 Allergy status to other drugs, medicaments and biological substances; Z88.2 Allergy status to sulfonamides
CPT/HCPCS: 0241U; 36415; 71046; 80048; 80053; 82947; 83735; 83880; 84484; 85025; 85027; 90653; 99222; 99232; 99238; 93010; 99285; A9270-GY; G0008; J1815; J1815-GY; J1939; J3490

== ENCOUNTER 2024-04-17 09:01 | Emergency (ER) | payer MEDICARE, BC ==
[2024-04-17 09:45] LABS: BASOPHILS PERCENT AUTO 0.3 % (0.1-1.3); EOSINOPHILS PERCENT AUTO 0.3 % (0.0-5.4); HEMATOCRIT 28.2 % (34.3-46.0); HEMOGLOBIN 9.2 g/dL (11.2-15.5); IMMATURE GRAN PERCENT AUTO 0.3 % (0.0-0.7); LYMPHOCYTES ABSOLUTE AUTO 0.53 K/uL (0.8-3.3); LYMPHOCYTES PERCENT AUTO 8.2 % (11.4-47.7); MEAN CORPUSCULAR HEMOGLOBIN 28.4 pg (31.6-35.5); MEAN CORPUSCULAR HGB CONC 32.6 g/dL (31.6-35.5); MONOCYTES ABSOLUTE AUTO 0.39 K/uL (0.20-0.90); NEUTROPHILS ABSOLUTE AUTO 5.52 K/uL (1.0-7.6); NEUTROPHILS PERCENT AUTO 84.9 % (40.0-78.1); PLATELET COUNT,PLT 279 K/uL (130-375); RED BLOOD CELL COUNT 3.24 M/uL (3.77-5.24); WHITE BLOOD CELL COUNT,WBC 6.5 K/uL (3.2-11.0)
[2024-04-17 09:46] LABS: BICARBONATE,VENOUS 27.1 mmol/L; CARBOXYHEMOGLOBIN 2.1 % (0.0-1.6); METHEMOGLOBIN 0.7 %; O2 SATURATION VENOUS 72.5; OXYHEMOGLOBIN 70.5 %; PH,VENOUS 7.489 (7.350-7.450); PO2 VENOUS 39.8 mm/Hg; TOTAL HEMOGLOBIN 9.5 g/dL (12.0-16.0)
[2024-04-17 09:47] LABS: BASOPHILS ABSOLUTE AUTO 0.02 K/uL (0.00-0.10); EOSINOPHILS ABSOLUTE AUTO 0.02 K/uL (0.00-0.40); IMMATURE GRAN ABSOLUTE AUTO 0.02 K/uL (0.00-0.23)
[2024-04-17] MEDS: Furosemide 20 MG/2 ML VIAL IVPUSH ONE ×2 (09:51→10:40)
[2024-04-17] MEDS: Sodium Chloride 0.9% 500 ML IV ONE (10:06)
[2024-04-17 10:17] LABS: A/G RATIO 0.8 (1.2-2.2); ALANINE AMINOTRANSFERASE,ALT 16 U/L (12-78); ALBUMIN 3.2 g/dL (3.4-5.0); ALKALINE PHOSPHATASE 100 U/L (46-116); ANION GAP 11.3 mmol/L (5.0-14.0); ASPARTATE AMNIOTRANSFERASE,AST 21 U/L (15-37); BLOOD UREA NITROGEN,BUN 62 mg/dL (7-18); CALCIUM 9.4 mg/dL (8.5-10.1); CARBON DIOXIDE,CO2 29 mmol/L (21-32); CHLORIDE,CL 100 mmol/L (100-108); EST CRCL DRUG DOSING (CG) 8.28 mL/min; ESTIMATED GFR 11 mL/min (>60); GLUCOSE RANDOM 181 mg/dL (74-106); POTASSIUM,K 4.5 mmol/L (3.6-5.2); PRO B-TYPE NATRIUR PEPT,BNPPRO 32526 pg/mL (5-450); PROTEIN TOTAL,TP 7.3 g/dL (6.4-8.2); SODIUM,NA 140 mmol/L (140-148)
[2024-04-17] MEDS: Aspirin 81 MG Tab.Chew PO ONE (10:39)
[2024-04-17] MEDS: Bumetanide 1 MG/4 ML MDV IVPUSH ONE (10:42)
[2024-04-17 11:14] LABS: APPEARANCE,URINE CLEAR (CLEAR); BILIRUBIN,URINE NEGATIVE (NEGATIVE); COLOR,URINE YELLOW (YELLOW); GLUCOSE,URINE NEGATIVE (NEGATIVE); KETONES,URINE NEGATIVE (NEGATIVE); LEUKOCYTE ESTERASE,URINE NEGATIVE (NEGATIVE); NITRITE,URINE NEGATIVE (NEGATIVE); OCCULT BLOOD,URINE SMALL (NEGATIVE); PROTEIN,URINE NEGATIVE (NEGATIVE); UROBILINOGEN,URINE 0.2 EU/dL (0.2-1.0)
[2024-04-17 11:21] LABS: RBC,URINE 0-5 (0-5)
[2024-04-17 11:22] LABS: BACTERIA,URINE NOT SEEN; EPITHELIAL CELLS,URINE RARE; WBC,URINE 0-5 (0-5)
== END 2024-04-17 13:35 ==
LOC: JP.ED 09:01
DX: I13.0 Hypertensive heart and chronic kidney disease with heart failure and stage 1 through stage 4 chronic kidney disease, or unspecified chronic kidney disease (principal); I50.9 Heart failure, unspecified; N18.9 Chronic kidney disease, unspecified; I48.91 Unspecified atrial fibrillation; E78.00 Pure hypercholesterolemia, unspecified; E11.22 Type 2 diabetes mellitus with diabetic chronic kidney disease; Z88.0 Allergy status to penicillin; Z88.1 Allergy status to other antibiotic agents; Z88.8 Allergy status to other drugs, medicaments and biological substances; Z79.4 Long term (current) use of insulin; Z79.01 Long term (current) use of anticoagulants; Z79.899 Other long term (current) drug therapy
CPT/HCPCS: 36415; 71045; 80053; 81001; 82803; 83605; 83735; 83880; 84145; 84484; 85025; 87428; 93005; 96374; 96375; 99285; A9270; J1940; J3490; J7030